=== PATIENT | female | born 1965 | race African-American/Black ===

== ENCOUNTER 2023-09-15 16:06 | Emergency (ER) | payer MEDICAID ==
[~2023-09-15] VITALS: Ht 170.2 cm; Wt 98.0 kg
[2023-09-15 16:18] VITALS: O2SAT 96
[2023-09-15] MEDS ORDERED: CYCL5TAB MT (17:54)
[2023-09-15] MEDS ORDERED: NAPR-1176 MT (17:54)
[2023-09-15] MEDS: KETOROLAC 30MG/ML VIAL IM ONE (18:55)
[2023-09-15] MEDS: HYDROCODONE/ACETAMINOPHEN 10/325MG TABLET PO ONE (18:55)
[2023-09-15 18:57] VITALS: BP 146/71; PULSE 83; RESP 20; TEMP 97.9
== END 2023-09-15 18:56 | disposition home or self-care (01) ==
LOC: ER 16:06
DX: M54.30 Sciatica, unspecified side (principal)
CPT/HCPCS: 99283; 96372; J1885